=== PATIENT | female | born 1990 | race Caucasian/White ===

== ENCOUNTER → 2017-12-09 | Outpatient (CLI) | payer OTHER ==
[2017-12-09 11:59] LABS: BASO % 0.2 % (0.0-1.0); EOS % 0.2 % (0.0-3.0); HEMATOCRIT 36.8 % (36.0-47.0); HEMOGLOBIN 12.1 g/dl (12.0-15.5); IMMATURE GRANULOCYTE % 0.4 % (0-3.0); LYMPH # 0.6 10^3/uL (1.5-6.5); LYMPH % 5.8 % (24.0-44.0); MEAN CORPUSCULAR HEMOGLOBIN 27.6 pg (27.0-33.0); MEAN CORPUSCULAR HGB CONC 32.9 g/dl (32.0-36.5); MEAN CORPUSCULAR VOLUME 83.8 fl (80.0-96.0); MONO # 0.5 10^3/uL (0.0-0.8); MONO % 5.2 % (0.0-5.0); NEUTROPHILS # 8.6 10^3/uL (1.8-7.7); NEUTROPHILS % 88.2 % (36.0-66.0); PLATELET COUNT, AUTOMATED 265 10^3/uL (150-450); RED BLOOD COUNT 4.39 10^6/uL (4.00-5.40); RED CELL DISTRIBUTION WIDTH 12.3 % (11.5-14.5); WHITE BLOOD COUNT 9.7 10^3/uL (4.0-10.0)
[2017-12-09 12:32] LABS: ALBUMIN 4.2 GM/DL (3.2-5.2); ALBUMIN/GLOBULIN RATIO 1.05 (1.00-1.93); ALKALINE PHOSPHATASE 56 U/L (45-117); ALT/SGPT 19 U/L (12-78); AMYLASE 50 U/L (25-115); ANION GAP 7 MEQ/L (8-16); AST/SGOT 13 U/L (7-37); BILIRUBIN,TOTAL 0.8 MG/DL (0.2-1.0); BLOOD UREA NITROGEN 15 MG/DL (7-18); CALCIUM LEVEL 8.9 MG/DL (8.5-10.1); CARBON DIOXIDE LEVEL 26 MEQ/L (21-32); CHLORIDE LEVEL 107 MEQ/L (98-107); CREATININE FOR GFR 0.76 MG/DL (0.55-1.30); GLOMERULAR FILTRATION RATE > 60.0 (>60); GLUCOSE, FASTING 96 MG/DL (70-100); LIPASE 120 U/L (73-393); POTASSIUM SERUM 4.3 MEQ/L (3.5-5.1); SODIUM LEVEL 140 MEQ/L (136-145); TOTAL PROTEIN 8.2 GM/DL (6.4-8.2)
== END ==
LOC: M WUC 10:26
DX: R10.816 Epigastric abdominal tenderness (principal); R11.2 Nausea with vomiting, unspecified
CPT/HCPCS: 82150

== ENCOUNTER 2019-06-24 08:26 | Day surgery (SDC) | payer OTHER ==
[~2019-06-24] VITALS: Ht 162.6 cm; Wt 62.2 kg
[~2019-06-24 08:26] MED LIST: LIDOCAINE 1% MDV 20ML VIAL SQ PRN; LR 1,000 ML IV ONE; SERT-141 PO
[2019-06-24] MEDS ORDERED: fentaNYL 100 MCG/2 ML INJECTION (J3010) As Ordered ONE ×2 (09:16→10:32)
[2019-06-24] MEDS ORDERED: MIDAZOLAM INJ 2 MG/2 ML VIAL (J2250) As Ordered ONE (09:16)
[2019-06-24] MEDS ORDERED: PROPOFOL 200 MG/20 ML VIAL As Ordered ONE (09:17)
[2019-06-24] MEDS ORDERED: dexameTHASONE 4 MG/ML 1ML VIAL (J1100) As Ordered ONE ×2 (09:17→10:20)
[2019-06-24] MEDS ORDERED: LIDOCAINE 2% INJ 100 MG/5 ML SDV (FOR ANES.) As Ordered ONE (09:17)
[2019-06-24] MEDS ORDERED: ROCURONIUM BROMIDE 50 MG/5 ML VIAL As Ordered ONE (09:17)
[2019-06-24] MEDS ORDERED: ONDANSETRON 4MG/2ML VIAL (J2405) As Ordered ONE ×2 (09:17→11:54)
[2019-06-24] MEDS ORDERED: EPINEPHrine 1MG/ML INJ 30ML MD-VIAL As Ordered ONE (09:57)
[2019-06-24] MEDS ORDERED: OXYMETAZOLINE NASAL SPRAY (AFRIN) As Ordered ONE (09:57)
[2019-06-24] MEDS ORDERED: LIDOCAINE W/EPINEPHRINE 1% 20ML VIAL As Ordered ONE (09:57)
[2019-06-24] MEDS ORDERED: METHYLENE BLUE 0.5% (5MG/ML) 10 ML AMP (PROVAYBLUE)(Q9968 PER 1MG) As Ordered ONE (09:58)
[2019-06-24] MEDS ORDERED: PERCOCET PO ×2 (10:25→10:30)
[2019-06-24] MEDS ORDERED: DOXY-350 PO (10:25)
[2019-06-24] MEDS ORDERED: SUGAMMADEX SODIUM 500 MG/5 ML VIAL (BRIDION) As Ordered ONE (10:41)
[2019-06-24] MEDS ORDERED: PHENYLephrine HCL 500 MCG/5 ML (100MCG/ML) SYRINGE (J2370) As Ordered ONE (10:56)
[2019-06-24] MEDS ORDERED: ePHEDrine SULFATE 25 MG/5 ML(5MG/ML) SYRINGE As Ordered ONE (10:56)
[2019-06-24] MEDS ORDERED: METOCLOPRAMIDE INJ 10MG/2ML VIAL (J2765) As Ordered ONE (12:01)
[2019-06-24] MEDS ORDERED: PROMETHAZINE INJ 25 MG/ML VIAL (J2550) As Ordered ONE (12:14)
[2019-06-24] MEDS ORDERED: fentaNYL 100 MCG/2 ML INJECTION (J3010) IV PRN (12:15)
[2019-06-24] MEDS ORDERED: METOCLOPRAMIDE INJ 10MG/2ML VIAL (J2765) IV PRN (12:15)
[2019-06-24] MEDS ORDERED: PERCOCET 5MG/325MG TAB PO PRN ×2 (12:15)
[2019-06-24] MEDS ORDERED: ONDANSETRON 4MG/2ML VIAL (J2405) IV PRN (12:15)
[2019-06-24] MEDS ORDERED: LR 1,000 ML IV SCH (12:15)
[2019-06-24] MEDS: PROMETHAZINE INJ 25 MG/ML VIAL (J2550) IV PRN ×2 (12:20→13:48)
[2019-06-24] MEDS ORDERED: IBUPROFEN 800 MG TAB PO SCH (16:00)
[2019-06-24 18:00] VITALS: BP 107/70
--- NOTE | 2019-06-27 21:29 | RO ---
DATE OF PROCEDURE: 06/24/2019 PREPROCEDURE DIAGNOSES: Bilateral chronic recurrent acute sinusitis and deviated septum. POSTPROCEDURE DIAGNOSES: Bilateral chronic recurrent acute sinusitis and deviated septum. OPERATIVE PROCEDURE: Septoplasty and bilateral endoscopic ethmoidectomy and antrostomy. SURGEON: Anjum Hayden MD CLERK CARRIER: ANESTHESIA: INDICATION: 28-year-old with a long history of recurrent nasal congestion, obstruction of breathing as well as recurrent sinusitis. She has a history of inhalant allergies and chronic allergic rhinitis as well. DESCRIPTION OF PROCEDURE: Satisfactory general endotracheal anesthesia administered and pharyngeal pack released. Nose was prepared for surgery by placing cotton soaked pledgets with Afrin solution to the nasal cavity bilaterally. 1% Xylocaine with 1:100,000 epinephrine injected into the nasal septum and inferior turbinates. A [place] incision was made on the left side of the nose. A mucoperichondrial flap and envelope was created on the left side of the nasal septum and carried down to the junction of the bony and cartilaginous septum. This was then with an elevator, and an envelope was then created on the right side of the septum. A Catalino scissors was used to make a cut high in the perpendicular plate in the midportion of the vomer, and a central segment of the bony septum was resected. Next, with the round knife on the Ilia elevator, a strip of cartilage was resected from the floor of the nose, mobilizing the quadrilateral cartilage and creating a swinging door. Then, a central segment of cartilaginous septum was resected, preserving a 1 cm dorsal and caudal strut. Double-action rongeur was used to take down deflected portions of the perpendicular plate, as well. Finally, the maxillary crest spur was taken down after elevating mucoperiosteum off both sides of it with a chisel. A segment of the resected cartilage was morselized and placed back into the septal envelope. The incision was closed using an interrupted #5-0 chromic suture. Then, a #4-0 plain suture was placed in a [id number] fashion through the two leaves of mucoperichondrium to appose them. Completing the septum surgery, endoscopic surgery was started first on the left side using the 0 degrees telescope and the microdebrider as the primary dissecting instrument. It was noted that she had moderate edema and pallor of the turbinates as if there was some active rhinitis currently present at the time of surgery. The middle turbinate was slightly infractured medially giving adequate exposure of the middle meatus. The microdebrider was then used to resect down to the uncinate process, resect the ethmoid bulla then perforate the ground lamella and enter the posterior ethmoid cells, then working posteriorly the anterior lamella bone were removed following the skull base and lamina papyracea. Anteriorly the remnant uncinate process taken down superiorly and supraorbital ethmoid cell was opened. Following natural maxillary sinus the ostia was identified, was cannulated and the margins in combination with side-biting and up-biting forceps. Adrenaline pledgets were placed in this side of the nose. An identical procedure was performed on the right side. After 5 minutes with the pledgets they were removed. There was no significant bleeding. Sinu-Foam was injected in both sides of the nose and to the middle meatus. The pharyngeal pack was removed. Throat was suctioned. The patient was then awakened, extubated and sent to recovery room in satisfactory condition. She will be discharged on Percocet for pain, doxycycline 100 mg twice a day and she will be seen in the office 5 days.
== END 2019-06-24 18:26 | disposition home or self-care (01) ==
LOC: M SDC 08:26
PROVIDERS: ATTEND Specialist
DX: J34.2 Deviated nasal septum (principal); J32.9 Chronic sinusitis, unspecified; F41.9 Anxiety disorder, unspecified; F32.9 Major depressive disorder, single episode, unspecified; J30.89 Other allergic rhinitis; Z79.899 Other long term (current) drug therapy
CPT/HCPCS: 30520; 31255; 31267; 81025; 88300; 88305; J1100; J2250; J2370; J2405; J2765; J3010; Q9968

== ENCOUNTER 2021-08-27 11:53 | Emergency (ER) | payer OTHER ==
[~2021-08-27] VITALS: Ht 162.6 cm; Wt 63.9 kg
[~2021-08-27 11:53] MED LIST changes: +DOXY-350 PO; -LIDOCAINE 1% MDV 20ML VIAL SQ PRN; -LR 1,000 ML IV ONE; +PERCOCET PO
[2021-08-27 11:54] VITALS: BP 123/70
[2021-08-27] MEDS ORDERED: AMOX500T PO (12:00)
[2021-08-27] MEDS ORDERED: diphenhydrAMINE 25MG CAP PO ONE (13:15)
[2021-08-27] MEDS ORDERED: ONDANSETRON 4 MG ORAL DISINTEGRATING TAB PO ONE (13:15)
[2021-08-27] MEDS ORDERED: KETOROLAC TROMETHAMINE 10 MG TAB PO ONE (13:15)
[2021-08-27 13:41] LABS: BASO % 0.4 % (0.0-1.0); EOS # 0.6 10^3/uL (0.0-0.5); EOS % 6.7 % (0.0-3.0); HEMATOCRIT 37.8 % (36.0-47.0); HEMOGLOBIN 12.3 g/dl (12.0-15.5); LYMPH % 21.9 % (24.0-44.0); MEAN CORPUSCULAR HEMOGLOBIN 26.9 pg (27.0-33.0); MEAN CORPUSCULAR HGB CONC 32.5 g/dl (32.0-36.5); MEAN CORPUSCULAR VOLUME 82.7 fl (80.0-96.0); MONO # 0.9 10^3/uL (0.0-0.8); MONO % 9.6 % (2.0-8.0); NEUTROPHILS # 5.5 10^3/uL (1.5-8.5); NEUTROPHILS % 61.2 % (36.0-66.0); PLATELET COUNT, AUTOMATED 264 10^3/uL (150-450); RED BLOOD COUNT 4.57 10^6/uL (4.00-5.40); WHITE BLOOD COUNT 8.9 10^3/uL (4.0-10.0)
[2021-08-27 13:58] LABS: ERYTHROCYTE SEDIMENTATION RATE 13 mm/hr (0-20)
[2021-08-27 14:02] LABS: ALBUMIN 4.2 GM/DL (3.2-5.2); ALT/SGPT 18 U/L (12-78); BILIRUBIN,DIRECT 0.1 MG/DL (0.0-0.2); BILIRUBIN,TOTAL 0.4 MG/DL (0.2-1.0); BLOOD UREA NITROGEN 14 MG/DL (7-18); CALCIUM LEVEL 9.2 MG/DL (8.5-10.1); CARBON DIOXIDE LEVEL 25 MEQ/L (21-32); CHLORIDE LEVEL 108 MEQ/L (98-107); CREATININE FOR GFR 0.73 MG/DL (0.55-1.30); GLOMERULAR FILTRATION RATE > 60.0 (>60); GLUCOSE, FASTING 90 MG/DL (70-100); LIPASE 149 U/L (73-393); SODIUM LEVEL 139 MEQ/L (136-145)
[2021-08-27] MEDS ORDERED: ACETAMINOPHEN 500 MG TAB PO ONE (15:15)
[2021-08-27] MEDS ORDERED: ONDA4TAB6 PO (16:13)
== END 2021-08-27 16:46 | disposition home or self-care (01) ==
LOC: M ED 11:53
DX: R51.9 Headache, unspecified (principal); R11.0 Nausea; M79.10 Myalgia, unspecified site; F32.9 Major depressive disorder, single episode, unspecified; J30.89 Other allergic rhinitis; Z79.899 Other long term (current) drug therapy
CPT/HCPCS: 36415; 70450; 80053; 82248; 83690; 84702; 85025; 85652; 86140; 99283; Q0162; U0003

== ENCOUNTER → 2021-11-08 | Outpatient (CLI) | payer OTHER ==
[~2021-11-08] MED LIST changes: +AMOX500T PO; +ONDA4TAB6 PO
[2021-11-08 14:17] LABS: C REACTIVE PROTEIN QUANTITATIV < 0.30 MG/DL (0.00-0.30); RHEUMATOID FACTOR QUANT < 10.0 IU/ML (<15.0)
== END ==
LOC: M PLALAB 09:24
PROVIDERS: ATTEND Internal Medicine Infectious Disease
DX: R76.8 Other specified abnormal immunological findings in serum (principal); M25.561 Pain in right knee; B27.00 Gammaherpesviral mononucleosis without complication

== ENCOUNTER → 2022-08-29 | Outpatient (CLI) | payer OTHER ==
[~2022-08-29] MED LIST changes: -DOXY-350 PO; +DOXY-444 PO
== END ==
LOC: M RAD 17:36
PROVIDERS: ATTEND Physician Assistant Medical
DX: M54.50 Low back pain, unspecified (principal); K59.00 Constipation, unspecified

== ENCOUNTER → 2024-06-13 | Outpatient (REF) | payer OTHER ==
[~2024-06-13] MED LIST changes: +DOXY-440 PO; -DOXY-444 PO; +ONDA-282 PO; -ONDA4TAB6 PO
== END ==
LOC: M LAB REF 20:58
PROVIDERS: ATTEND Physician Assistant
DX: J02.9 Acute pharyngitis, unspecified (principal)

== ENCOUNTER → 2024-08-23 | Outpatient (REF) | payer OTHER | LOC: M LAB REF 21:01 | PROVIDERS: ATTEND Physician Assistant | DX: B34.9 Viral infection, unspecified (principal) ==

== ENCOUNTER → 2025-07-09 | Outpatient (REF) | payer OTHER | LOC: M LAB REF 20:56 | PROVIDERS: ATTEND Physician Assistant | DX: B34.9 Viral infection, unspecified (principal) ==